=== PATIENT | male | born 1970 | race Caucasian/White ===

== ENCOUNTER 2020-06-10 06:58 | Emergency (ER) | payer MEDICAID, OTHER ==
[~2020-06-10] VITALS: Ht 187 cm; Wt 104.0 kg
--- NOTE | 2020-06-10 07:03 | ED Abdominal Pain ---
General Stated Complaint: GROIN PAIN Source of Information: Patient Exam Limitations: No Limitations History of Present Illness Date Seen by Provider: Jun 10, 2020 Time Seen by Provider: 07:03 Initial Comments 49-year-old male presents with right inguinal hernia. Patient reports that his been there for approximately 24 hours. He reports that he would get it to go back in a couple times that would immediately come right back out. Patient reports that about a month ago he was seen and given medicine and special undergarments to help put it back in. Reports that he lost those. Reports that they were not able to reduce it with the general surgeon saw last time but eventually it went back in. He reports this is worse than a previous time. He denies any fevers or chills. Allergies and Home Medications Allergies Coded Allergies: Penicillins (Verified Allergy, Unknown, 06/10/20) acetaminophen (Verified Allergy, Unknown, 06/10/20) aspirin (Verified Allergy, Unknown, 06/10/20) codeine (Verified Allergy, Unknown, 06/10/20) Home Medications No Active Prescriptions or Reported Meds Patient Home Medication List Home Medication List Reviewed: Yes Review of Systems Review of Systems Constitutional: No chills, No fever EENTM: No Symptoms Reported Respiratory: No Symptoms Reported Cardiovascular: No Symptoms Reported Gastrointestinal: See HPI, Abdominal Pain Genitourinary: See HPI Musculoskeletal: no symptoms reported Skin: no symptoms reported Psychiatric/Neurological: No Symptoms Reported Past Ttrlbyl-Jcmtjz-Nzuagd Hx Past Med/Social Hx: Reviewed Nursing Past Med/Soc Hx Physical Exam Vital Signs Vital Signs - First Documented 06/10/20 07:00 Temp 36.7 Pulse 79 Resp 16 B/P (MAP) 141/89 (106) Pulse Ox 92 O2 Delivery Room Air Capillary Refill : Height/Weight/BMI Height: '" Weight: lbs. oz. kg; BMI Method: General Appearance: no apparent distress Respiratory: lungs clear, normal breath sounds Cardiovascular: normal peripheral pulses, regular rate, rhythm Gastrointestinal: tenderness (right groin), other (swelling and right groin consistent with inguinal hernia that tracks down into the right testicle, firm) Genital/Rectal: tenderness (right testicle) Extremities: normal range of motion Male: inguinal tenderness, testicular tenderness Neurologic/Psychiatric: alert, normal mood/affect, oriented x 3 Skin: normal color, warm/dry Focused Exam Lactate Level 06/10/20 07:24: Lactic Acid Level 0.87 Lactic Acid Level Laboratory Tests Test 06/10/20 07:24 Lactic Acid Level 0.87 MMOL/L (0.50-2.00) Progress/Results/Core Measures Results/Orders Lab Results Laboratory Tests Test 06/10/20 07:15 06/10/20 07:24 Range/Units White Blood Count 10.0 4.3-11.0 10^3/uL Red Blood Count 4.75 4.30-5.52 10^6/uL Hemoglobin 15.0 13.3-17.7 g/dL Hematocrit 46 40-54 % Mean Corpuscular Volume 97 80-99 fL Mean Corpuscular Hemoglobin 32 25-34 pg Mean Corpuscular Hemoglobin Concent 33 32-36 g/dL Red Cell Distribution Width 12.9 10.0-14.5 % Platelet Count 197 130-400 10^3/uL Mean Platelet Volume 9.7 9.0-12.2 fL Immature Granulocyte % (Auto) 0 % Neutrophils (%) (Auto) 80 H 42-75 % Lymphocytes (%) (Auto) 13 12-44 % Monocytes (%) (Auto) 7 0-12 % Eosinophils (%) (Auto) 0 0-10 % Basophils (%) (Auto) 0 0-10 % Neutrophils # (Auto) 8.0 H 1.8-7.8 10^3/uL Lymphocytes # (Auto) 1.3 1.0-4.0 10^3/uL Monocytes # (Auto) 0.7 0.0-1.0 10^3/uL Eosinophils # (Auto) 0.0 0.0-0.3 10^3/uL Basophils # (Auto) 0.0 0.0-0.1 10^3/uL Immature Granulocyte # (Auto) 0.0 0.0-0.1 10^3/uL Sodium Level 137 135-145 MMOL/L Potassium Level 4.1 3.6-5.0 MMOL/L Chloride Level 102 98-107 MMOL/L Carbon Dioxide Level 27 21-32 MMOL/L Anion Gap 8 5-14 MMOL/L Blood Urea Nitrogen 10 7-18 MG/DL Creatinine 0.83 0.60-1.30 MG/DL Estimat Glomerular Filtration Rate > 60 BUN/Creatinine Ratio 12 Glucose Level 113 H 70-105 MG/DL Calcium Level 9.0 8.5-10.1 MG/DL Corrected Calcium 8.9 8.5-10.1 MG/DL Total Bilirubin 0.4 0.1-1.0 MG/DL Aspartate Amino Transf (AST/SGOT) 27 5-34 U/L Alanine Aminotransferase (ALT/SGPT) 19 0-55 U/L Alkaline Phosphatase 101 40-136 U/L Total Protein 7.7 6.4-8.2 GM/DL Albumin 4.1 3.2-4.5 GM/DL Lactic Acid Level 0.87 0.50-2.00 MMOL/L My Orders Orders - DELUCA,RUPERTO L DO Cbc With Automated Diff (06/10/20 07:08) Comprehensive Metabolic Panel (06/10/20 07:08) Lactic Acid Analyzer (06/10/20 07:08) Ed Iv/Invasive Line Start (06/10/20 07:08) Ct Abdomen/Pelvis W (06/10/20 07:08) Iohexol Injection (Omnipaque 350 Mg/Ml 1 (06/10/20 07:45) Received Contrast (Hold Metformin- Contr (06/10/20 07:45) Sodium Chloride Flush (Catheter Flush Sy (06/10/20 07:45) Ns (Ivpb) (Sodium Chloride 0.9% Ivpb Bag (06/10/20 07:45) Fentanyl Injection (Sublimaze Injection (06/10/20 08:29) Fentanyl Injection (Sublimaze Injection (06/10/20 09:00) Medications Given in ED Current Medications Medications Dose Ordered Sig/Charito Route Start Time Stop Time Status Last Admin Dose Admin Fentanyl Citrate 100 mcg ONCE PRN IVP 06/10/20 09:00 06/10/20 09:04 100 MCG Iohexol 100 ml ONCE ONCE IV 06/10/20 07:45 06/10/20 07:46 DC 06/10/20 07:55 100 ML Sodium Chloride 10 ml NEEDED PRN IV 06/10/20 07:45 06/10/20 07:55 10 ML Sodium Chloride 100 ml ONCE ONCE IV 06/10/20 07:45 06/10/20 07:46 DC 06/10/20 07:55 80 ML Vital Signs/I&O 06/10/20 07:00 Temp 36.7 Pulse 79 Resp 16 B/P (MAP) 141/89 (106) Pulse Ox 92 O2 Delivery Room Air Progress Progress Note : Time: 08:33 Progress Note I did attempt reduction on the hernia. That would initially reduce and then immediately come right back. This is consistent with patient story of a similar episodes 2-3 times over the last 24 hours. The swelling has slightly increased throughout his stay here in the ER. I did discuss with Dr. Schaeffer who will come and see patient in the ER between cases [id number] patient was seen by Dr. Schaeffer. I was in room with patient and Dr. Schaeffer. Dr. Schaeffer attempted reduction. Patient then started refusing due to pain. Patient was given pain medication and continue to refuse further treatment. He then stated he was is no leave AMA. There were multiple times by both me and Dr. Schaeffer to convince patient to stay due to the risk for incarceration and worsening of symptoms with even possible . Patient states he knows the risk but he is leaving AMA and he is signing papers. Patient was once again asked the stay but refused further treatment and left AMA. Patient understood risks of possible incarceration, bowel , possible patient . Diagnostic Imaging Diagonstic Imaging: CT Plain Films/CT/US/NM/MRI: abdomen Comments [facility], [place] NAME: GUILLERMO AVILA [facility] REC#: [id number] PT STATUS: REG ER : 1970 PHYSICIAN: RUPERTO DELUCA DO ADMIT DATE: 06/10/20/ER Draft Date of Exam:06/10/20 CT ABDOMEN/PELVIS W INDICATION: Right lower quadrant pain, inguinal hernia. TECHNIQUE: Multiple contiguous axial images were obtained through the abdomen and pelvis after administration of intravenous contrast. Auto Exposure Controls were utilized during the CT exam to meet ALARA standards for radiation dose reduction. All CT scans use one or more of the following dose optimizing techniques: automated exposure control, MA and/or KvP adjustment based on patient size and exam type or iterative reconstruction. There is no prior study for comparison. FINDINGS: Visualized portions of the lung bases are clear. There were no pleural fluid collections. There is no free intraperitoneal air. The liver and gallbladder appear normal. The spleen, adrenals, and pancreas appear normal. Kidneys bilaterally are unremarkable. There is no retroperitoneal mass or adenopathy. There is no ascites. There is a large right inguinal hernia. This contains portion of distal small bowel which appears thickened and irregular, there is dilatation of small bowel loops immediately proximal to the inguinal hernia with fecalization of the small bowel content. IMPRESSION: Large right inguinal hernia, containing a thickened and irregular loop of small bowel compatible with partial obstruction or incarceration. There is dilatation of the small bowel loops immediately above the inguinal hernia. There is no abscess or other significant finding. Departure Impression Primary Impression: Inguinal hernia Qualified Codes: K40.91 - Unilateral inguinal hernia, without obstruction or gangrene, recurrent Disposition: 07 AGAINST MEDICAL ADVICE Condition: Against Medical Advice Departure-Patient Inst. Referrals: UNKNOWN (PCP) Primary Care Physician Patient Instructions: Groin Hernia (DC) Scripts No Active Prescriptions or Reported Meds RUPERTO DELUCA DO Jun 10, 2020 07:03
[2020-06-10 07:22] LABS: BASOPHILS % (AUTO) 0 % (0-10); EOSINOPHILS % (AUTO) 0 % (0-10); HEMATOCRIT 46 % (40-54); LYMPHOCYTES # (AUTO) 1.3 10^3/uL (1.0-4.0); LYMPHOCYTES % (AUTO) 13 % (12-44); MEAN CORPUSCULAR HEMOGLOBIN 32 pg (25-34); MEAN CORPUSCULAR HGB CONC 33 g/dL (32-36); MEAN CORPUSCULAR VOLUME 97 fL (80-99); MEAN PLATELET VOLUME 9.7 fL (9.0-12.2); MONOCYTES # (AUTO) 0.7 10^3/uL (0.0-1.0); MONOCYTES % (AUTO) 7 % (0-12); NEUTROPHILS % (AUTO) 80 % (42-75); PLATELET COUNT 197 10^3/uL (130-400)
[2020-06-10 07:34] LABS: ALBUMIN 4.1 GM/DL (3.2-4.5)
[2020-06-10 07:35] LABS: CHLORIDE 102 MMOL/L (98-107); POTASSIUM 4.1 MMOL/L (3.6-5.0); SODIUM 137 MMOL/L (135-145)
[2020-06-10 07:37] LABS: GLUCOSE 113 MG/DL (70-105); TOTAL PROTEIN 7.7 GM/DL (6.4-8.2)
[2020-06-10 07:38] LABS: CARBON DIOXIDE 27 MMOL/L (21-32)
[2020-06-10 07:39] LABS: BILIRUBIN,TOTAL 0.4 MG/DL (0.1-1.0)
[2020-06-10 07:40] LABS: ALKALINE PHOSPHATASE 101 U/L (40-136)
[2020-06-10 07:41] LABS: CREATININE SERUM 0.83 MG/DL (0.60-1.30); GFR ESTIMATED > 60
[2020-06-10 07:42] LABS: BUN/CREATININE RATIO 12
[2020-06-10 07:43] LABS: ALANINE AMINOTRANSFERASE 19 U/L (0-55)
[2020-06-10] MEDS ORDERED: CATHETER FLUSH 10 ML SYR IV PRN (07:45)
[2020-06-10] MEDS ORDERED: HOLD METFORMIN - RECEIVED CONTRAST 20 ML VIAL IV SCH (07:45)
[2020-06-10] MEDS ORDERED: NS 100 ML (IVPB) BAG IV ONE (07:45)
[2020-06-10] MEDS ORDERED: IOHEXOL 350 MG/ML 100 ML (OMNIPAQUE 350) VIAL IV ONE (07:45)
--- NOTE | 2020-06-10 08:14 | Diagnostic Imaging Report ---
INDICATION: Right lower quadrant pain, inguinal hernia. TECHNIQUE: Multiple contiguous axial images were obtained through the abdomen and pelvis after administration of intravenous contrast. Auto Exposure Controls were utilized during the CT exam to meet ALARA standards for radiation dose reduction. All CT scans use one or more of the following dose optimizing techniques: automated exposure control, MA and/or KvP adjustment based on patient size and exam type or iterative reconstruction. There is no prior study for comparison. FINDINGS: Visualized portions of the lung bases are clear. There were no pleural fluid collections. There is no free intraperitoneal air. The liver and gallbladder appear normal. The spleen, adrenals, and pancreas appear normal. Kidneys bilaterally are unremarkable. There is no retroperitoneal mass or adenopathy. There is no ascites. There is a large right inguinal hernia. This contains portion of distal small bowel which appears thickened and irregular, there is dilatation of small bowel loops immediately proximal to the inguinal hernia with fecalization of the small bowel content. IMPRESSION: Large right inguinal hernia, containing a thickened and irregular loop of small bowel compatible with partial obstruction or incarceration. There is dilatation of the small bowel loops immediately above the inguinal hernia. There is no abscess or other significant finding. Dictated by: Dictated on workstation # [id number]
--- NOTE | 2020-06-10 08:27 | NUR ---
IN ROOM TRYING TO REDUCE HERNIA.
[2020-06-10] MEDS ORDERED: fentaNYL INJECTION 100 MCG/2 ML AMP IVP STA (08:29)
--- NOTE | 2020-06-10 08:57 | NUR ---
DR SPEAR HERE TO SEE THE PT.
[2020-06-10] MEDS ORDERED: fentaNYL INJECTION 100 MCG/2 ML AMP IVP PRN (09:00)
--- NOTE | 2020-06-10 09:04 | NUR ---
AFTER FENTENYL WAS PUSHED PT STATES HE WANTS TO LEAVE AMA. BOTH DR SPEAR AND DR DELUCA EXPLAINED TO HIM THE RISK OF LEAVING AMA MUTLIPLE TIMES ET PT CONTINUES TO WANT TO LEAVE. PT ALERT ET ORIENTED ABLE TO WALK WITHOUT DIFFICULTY.
[2020-06-10 09:05] VITALS: BP 137/92
--- NOTE | 2020-06-10 20:07 | Consultation - Surgery ---
History of Present Illness History of Present Illness Patient Consulted On(amarjit/time) 06/10/20 09:08 Date Seen by Provider: Jun 10, 2020 Time Seen by Provider: 09:08 History of Present Illness Consult requested by Dr. Jones for right inguinal hernia Patient is a 49-year-old male who has a right inguinal hernia. Patient states he has had it for several months that he knows of and that he is been seen previously for it but it was able to be reduced and did not bother him any further and it was not coming out so he left it alone. Patient now has had it return he is able to move in and out however it has stuck at this time. Patient states that he is unable to get it back in. It is very uncomfortable. Nothing makes it better or worse at this time. He denies any nausea vomiting fever sweats chills shortness of breath or chest pain. His CT scan is consistent with right inguinal hernia with slightly thickened bowel possibly causing a small bowel obstruction. Allergies and Home Medications Allergies Coded Allergies: Penicillins (Verified Allergy, Unknown, 06/10/20) acetaminophen (Verified Allergy, Unknown, 06/10/20) aspirin (Verified Allergy, Unknown, 06/10/20) codeine (Verified Allergy, Unknown, 06/10/20) Home Medications No Active Prescriptions or Reported Meds Patient Home Medication List Home Medication List Reviewed: Yes Past Ewpjpjx-Kkuykc-Nrkspa Hx Patient Social History Alcohol Use: Denies Use Recreational Drug Use: No Smoking Status: Current Everyday Smoker Recent Foreign Travel: No Contact w/Someone Who Travel: No Recent Infectious Disease Expo: No Recent Hopitalizations: No Surgeries History of Surgeries: No Respiratory History of Respiratory Disorde: Yes Respiratory Disorders: Asthma Cardiovascular History of Cardiac Disorders: No Neurological History of Neurological Disord: No Genitourinary History of Genitourinary Disor: No Gastrointestinal History of Gastrointestinal Di: Yes (hernia) Gastrointestinal Disorders: Gastroesophageal Reflux Endocrine History of Endocrine Disorders: Yes Endocrine Disorders: Diabetes, Non-Insulin dep HEENT History of HEENT Disorders: No Cancer History of Cancer: No Psychosocial History of Psychiatric Problem: No Integumentary History of Skin or Integumenta: No Reviewed Nursing Assessment Reviewed/Agree w Nursing PMH: Yes Family Medical History Significant Family History: No Pertinent Family Hx Review of Systems-General Constitutional: No chills, No diaphoresis EENTM: No blurred vision, No double vision Respiratory: No cough, No dyspnea on exertion Cardiovascular: No chest pain, No edema Gastrointestinal: No nausea, No vomiting; other (Right inguinal hernia) Genitourinary: No discharge, No dysuria Musculoskeletal: No back pain, No joint pain Skin: No change in color, No change in hair/nails Psychiatric/Neurological: Denies Anxiety, Denies Depressed, Denies Emotional Problems All Other Systems Reviewed Negative Unless Noted: Yes (Negative excepted noted.) Physical Exam-General Problems Physical Exam Vital Signs Vital Signs - First Documented 06/10/20 07:00 Temp 36.7 Pulse 79 Resp 16 B/P (MAP) 141/89 (106) Pulse Ox 92 O2 Delivery Room Air Capillary Refill : Less Than 3 Seconds General Appearance: WD/WN, no apparent distress HEENT: PERRL/EOMI, normal ENT inspection Neck: non-tender, supple Respiratory: chest non-tender, no respiratory distress, no accessory muscle use Cardiovascular: regular rate, rhythm, no JVD Gastrointestinal: non tender, soft, hernia (Right inguinal with extension into the right scrotum) Rectal: deferred Back: normal inspection, no CVA tenderness Extremities: normal range of motion, normal inspection 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, alert, normal mood/affect, oriented x 3 Skin: normal color, warm/dry Lymphatic: no adenopathy Data Review Labs Laboratory Tests 06/10/20 07:15: White Blood Count 10.0, Red Blood Count 4.75, Hemoglobin 15.0, Hematocrit 46, Mean Corpuscular Volume 97, Mean Corpuscular Hemoglobin 32, Mean Corpuscular Hemoglobin Concent 33, Red Cell Distribution Width 12.9, Platelet Count 197, Mean Platelet Volume 9.7, Immature Granulocyte % (Auto) 0, Neutrophils (%) (Auto) 80H, Lymphocytes (%) (Auto) 13, Monocytes (%) (Auto) 7, Eosinophils (%) (Auto) 0, Basophils (%) (Auto) 0, Neutrophils # (Auto) 8.0H, Lymphocytes # (Au to) 1.3, Monocytes # (Auto) 0.7, Eosinophils # (Auto) 0.0, Basophils # (Auto) 0.0, Immature Granulocyte # (Auto) 0.0, Sodium Level 137, Potassium Level 4.1, Chloride Level 102, Carbon Dioxide Level 27, Anion Gap 8, Blood Urea Nitrogen 10, Creatinine 0.83, Estimat Glomerular Filtration Rate > 60, BUN/Creatinine Ratio 12, Glucose Level 113H, Calcium Level 9.0, Corrected Calcium 8.9, Total Bilirubin 0.4, Aspartate Amino Transf (AST/SGOT) 27, Alanine Aminotransferase (ALT/SGPT) 19, Alkaline Phosphatase 101, Total Protein 7.7, Albumin 4.1 06/10/20 07:24: Lactic Acid Level 0.87 Assessment/Plan Assessment/Plan Assessment/Plan Right inguinal hernia Patient I worked with to try to reduce the inguinal hernia which he did not want any further attempts at having this reduced. Patient was discussed that the op tions were surgical options or trying to get it to reduce and then electively repairing it. Patient did not want to have anything done at this point and he wanted to sign AMA papers and leave. Patient was discussed the risk of not having this fixed which could mean ischemic bowel sepsis or even . Patient demonstrates understanding that these are possibilities and still wants to leave AMA.. Dr. Jones was present at this discussion as well and we both made multiple attempts to make sure patient had every understanding of what was going on and we both agree that patient demonstrates complete understanding. ENDER SPEAR DO Jun 10, 2020 20:07
== END 2020-06-10 09:05 | disposition left against medical advice (07) ==
LOC: ER 07:03
DX: K40.91 Unilateral inguinal hernia, without obstruction or gangrene, recurrent (principal); Z88.0 Allergy status to penicillin; Z88.5 Allergy status to narcotic agent; Z88.8 Allergy status to other drugs, medicaments and biological substances; Z88.6 Allergy status to analgesic agent
CPT/HCPCS: 36415; 74177; 80053; 83605; 85025